=== PATIENT | female | born 1955 | race Caucasian/White ===

== ENCOUNTER 2023-07-04 09:08 | Outpatient (CLI) | payer BC ==
[2023-07-04] MEDS ORDERED: Iopamidol 300 61% 100 ML VIAL FS ONE (11:36)
[2023-07-04] MEDS ORDERED: Gadobenate 529 MG/ML (10ML SDV) ONE (11:36)
[2023-07-04] MEDS ORDERED: EPINEPHrine 1 MG/ML AMP ONE (11:36)
== END 2023-07-04 09:09 | disposition home or self-care (01) ==
LOC: CSHRAD 09:08
PROVIDERS: ATTEND Orthopaedic Surgery
DX: M24.812 Other specific joint derangements of left shoulder, not elsewhere classified (principal); M75.122 Complete rotator cuff tear or rupture of left shoulder, not specified as traumatic
CPT/HCPCS: 23350; A9577; J0171; J7050; Q9967

== ENCOUNTER 2025-08-25 12:25 | Outpatient (CLI) | payer BC | END 2025-08-25 12:26 | disposition home or self-care (01) | LOC: CSHLAB 12:25 | PROVIDERS: ATTEND Surgery | DX: Z01.810 Encounter for preprocedural cardiovascular examination (principal); K44.9 Diaphragmatic hernia without obstruction or gangrene; R94.31 Abnormal electrocardiogram [ECG] [EKG] | CPT/HCPCS: 93005; 93010 ==